=== PATIENT | female | born 1940 | race Caucasian/White ===

== ENCOUNTER 2021-05-29 00:53 | Emergency (ER) | payer MEDICARE ==
[~2021-05-29] VITALS: Ht 165.1 cm; Wt 66.7 kg
[~2021-05-29 00:53] MED LIST: ALEN70TA80 PO; ANAS1TAB7 PO; ATEN50TA PO; LISI40TA9 PO; METF-446 PO; PANT40TA PO; PARO30TA60 PO; ROSU5TAB PO
[2021-05-29 02:21] LABS: BASOPHILS % (AUTO) 0.6 % (0.0-5.0); EOSINOPHILS % (AUTO) 1.9 % (0.0-8.0); HEMATOCRIT 38.8 % (36-48); LYMPHOCYTES % (AUTO) 9.1 % (21.0-51.0); MEAN CORPUSCULAR HGB CONC 31.7 g/dL (32.0-36.0); MEAN CORPUSCULAR VOLUME 97.7 fL (79-99); NEUTROPHILS % (AUTO) 81.2 % (40.0-77.0); PLATELET COUNT (AUTO) 208 K/uL (130-400); RED BLOOD CELL COUNT(AUTO) 3.97 MIL/uL (4.00-5.50); RED CELL DISTRIBUTION WIDTH 12.1 % (11.0-15.5); WHITE BLOOD COUNT (AUTO) 4.9 K/uL (4.8-10.8)
[2021-05-29 02:34] LABS: CREATININE 1.8 mg/dL (0.5-1.5); POTASSIUM 3.1 mmol/L (3.5-5.1)
[2021-05-29 02:38] LABS: ALBUMIN 3.9 g/dL (3.5-5.0); BILIRUBIN,TOTAL 0.4 mg/dL (0.2-1.0); CRP QUANTITATIVE 10.6 mg/L (0.00-9.0); TOTAL PROTEIN, SERUM 7.2 g/dL (6.0-8.3)
[2021-05-29 02:43] LABS: B-TYPE NATRIURETIC PEPTIDE 63 pg/mL (0-100)
[2021-05-29 04:30] VITALS: BP 163/96
[2021-05-29] MEDS ORDERED: CEFTRIAXONE 1G VIAL IVP ONE (04:30)
[2021-05-29] MEDS ORDERED: AZITHROMYCIN 250 MG TABLET PO ONE (04:30)
[2021-05-29] MEDS ORDERED: AMOX-429 PO (05:04)
== END 2021-05-29 05:36 | disposition home or self-care (01) ==
LOC: EDH 00:53
DX: J22 Unspecified acute lower respiratory infection (principal); R50.9 Fever, unspecified; R05.9 Cough, unspecified; C79.81 Secondary malignant neoplasm of breast; Z20.822 Contact with and (suspected) exposure to COVID-19; E11.9 Type 2 diabetes mellitus without complications; F32.A Depression, unspecified; I10 Essential (primary) hypertension; Z79.84 Long term (current) use of oral hypoglycemic drugs; Z79.899 Other long term (current) drug therapy; Z85.3 Personal history of malignant neoplasm of breast
CPT/HCPCS: 36415; 71045; 80053; 83605; 83880; 84145; 84484; 85025; 85378; 86140; 87040 ×2; 87635; 87804 ×2; 96374; 99284; C9803; J0696